=== PATIENT | female | born 1935 ===

== ENCOUNTER → 2017-10-22 | Outpatient (CLI) | payer OTHER ==
[~2017-10-22] MED LIST: COUMADIN3 MG PO; METROPOLOL PO; [UNRECOGNIZED DRUG - OTHER] PO
== END | disposition home or self-care (01) ==
LOC: LAB 09:00 → CIR.AMB 10-26 04:30 → EDSTATUS 10-26 04:30 → CIR.AMB 10-26 10:22
DX: M79.632 Pain in left forearm (principal)

== ENCOUNTER 2017-10-24 14:50 | Emergency (ER) | payer OTHER ==
[~2017-10-24] VITALS: Ht 162.6 cm; Wt 54.0 kg
== END 2017-10-24 22:41 | disposition home or self-care (01) ==
LOC: ER 14:50
DX: G89.11 Acute pain due to trauma (principal); M79.605 Pain in left leg; M79.604 Pain in right leg; M79.675 Pain in left toe(s); M79.674 Pain in right toe(s); R60.0 Localized edema

== ENCOUNTER → 2017-10-25 | Emergency (ER) | payer OTHER ==
[~2017-10-25] VITALS: Ht 162.6 cm; Wt 54.0 kg
== END | disposition designated cancer center or children's hospital (05) ==
LOC: ER 12:33 → CPU-OBS 13:02 → ER 13:02
DX: I62.01 Nontraumatic acute subdural hemorrhage (principal); R40.2432 Glasgow coma scale score 3-8, at arrival to emergency department; R53.83 Other fatigue